=== PATIENT | female | born 1950 | race Caucasian/White ===

== ENCOUNTER → 2018-04-22 13:37 | Outpatient (CLI) | payer MEDICARE, OTHER, SELFPAY ==
--- NOTE | 2018-04-23 20:06 | DI.NM.S_ITS ---
DATE OF SERVICE: 04/22/2018 PROCEDURE: Exercise perfusion study. INDICATIONS: Shortness of breath, chest pain, atrial fibrillation, hypertension. RADIOPHARMACEUTICAL: 24.6 mCi technetium-99m Myoview IV was injected at stress and 23.4 mCi technetium-99m Myoview IV was injected at rest. CARDIAC STRESS: Patient underwent exercise perfusion study under the supervision of an attending staff. She walked on [place] protocol for 6 minutes 02 seconds achieved 108% of target heart rate and normal blood pressure response. Patient achieved 7 METs of workload. Functional aerobic impairment +5%. She didn't have any chest pain. Baseline EKG revealed sinus rhythm with RS-S complex in V1 To V2. Stress EKG did not reveal any obvious inducible ischemic changes. No significant arrhythmias. RAW DATA: There was breast shadow seen. GATED STUDY: Stress LV ejection fraction 77% and resting LV ejection fraction 71%. I don't see any obvious wall motion abnormalities. Resting end-diastolic volume is 103 mL. TID ratio is 0.77, which is within normal limits. Lung/heart ratio is 0.28, which is within normal limits. No transient ischemic dilatation. MYOCARDIAL PERFUSION SCAN: Stress supine, resting supine images and stress prone images were compared to each other. Stress supine images revealed small-sized mildly decreased perfusion of distal anterior wall, anterior apex, and resting supine images revealed small-sized mildly decreased perfusion of anterior wall and anterior apex which got completely resolved during prone images suggestive of breast tissue attenuation artifact. No obvious ischemia infarction on prone images. CONCLUSION: I will call this study a normal myocardial perfusion study with evidence of breast tissue attenuation artifact which got resolved during permanent images. As far as perfusion scan is concerned, this is a low-risk myocardial perfusion scan. Lucille Stern - ALISON/mirela/ab doc#: [id number]/job#: [id number] dd: 04/23/2018 16:42:00 dt: 04/23/2018 19:57:00 DICTATING /COPIES TO: Sanjeev Mathews MD COPIES MNE: CATE
== END ==
PROVIDERS: PCP Physician Assistant; Visit Provider Physician Assistant
DX: R06.02 Shortness of breath (principal); I48.91 Unspecified atrial fibrillation; R07.9 Chest pain, unspecified
CPT/HCPCS: 78452; 93016; 93017; 93018; A9502

== ENCOUNTER → 2018-04-28 10:28 | Outpatient (CLI) | payer MEDICARE, OTHER, SELFPAY ==
--- NOTE | 2018-04-28 | DI.ECHO.S_ITS ---
[facility]---------+ [facility] +---------+ : : [address] : [place] : : : : [id number] : : : : Phone: [phone]+ Echocardiogram Report + + :Name: RUPA ANGEL Study Date: 04/28/2018 Height: 69 in : :[facility] Weight: 154 lb : : Gender: Female BSA: 1.8 m2 : :: 1950 Age: 68 yrs BP: 134/64 mmHg: :Reason For Study: Congestive Heart Failure : : Performed By: Hillary Forbes : :Referring: JERAMY LOREDO : + + Interpretation Summary The left ventricle is normal in size. Assessment of diastolic parameters suggests a pseudonormalization pattern, consistent with elevated filling pressures. The ejection fraction is estimated to be 65-70%. The right ventricle is normal size. The right ventricular systolic function is normal. There is mild to moderate mitral regurgitation. There is mild to moderate tricuspid regurgitation. The right ventricular systolic pressure is estimated at 40 mmHg assuming a right atrial pressure of 3 mm Hg. Procedure: A two-dimensional transthoracic echocardiogram with color flow and Doppler was performed. The study quality was technically adequate. There is no prior echocardiogram noted for this patient. The patient was in normal sinus rhythm during the exam. Left Ventricle: The left ventricle is normal in size. There is normal left ventricular wall thickness. There is no thrombus. The ejection fraction is estimated to be 65-70%. There are no focal wall motion abnormalities. Assessment of diastolic parameters suggests a pseudonormalization pattern, consistent with elevated filling pressures. Right Ventricle: The right ventricle is normal size. The right ventricular systolic function is normal. Atria: The left atrium is moderately dilated. Right atrial size is normal. The interatrial septum is intact with no evidence for an atrial septal defect. Mitral Valve: The mitral valve is grossly normal. There is mild to moderate mitral regurgitation. Aortic Valve: The aortic valve opens well. The aortic valve is trileaflet. There is trace aortic regurgitation. Tricuspid Valve: The tricuspid valve leaflets are thin and pliable. There is mild to moderate tricuspid regurgitation. The right ventricular systolic pressure is estimated at 40 mmHg assuming a right atrial pressure of 3 mm Hg. Pulmonic Valve: The pulmonic valve is not well visualized. Great Vessels: The aortic root is normal size. The dimensions of the ascending aorta are normal. The IVC is of normal diameter and collapses greater than 50% with a sniff. This suggests a low right atrial pressure of 3 mm Hg. Pericardium/ Pleura There is no pericardial effusion. There is no pleural effusion. MMode/2D Measurements & Calculations LVIDd: 4.7 cm Ao root diam: 3.1 cm LVIDs: 2.6 cm Aortic Jxn: 2.5 cm FS: 43.5 % asc Aorta Diam: 3.2 cm EPSS: 1.2 cm Ao Arch Diam (Prox Trans): 2.4 cm IVSd: 0.89 cm LVPWd: 1.0 cm LV wheeler. diameter/BSA (cm/m^2): 2.5 LV sys. diameter/BSA (cm/m^2): 1.4 LA dimension: 3.6 cm RA long axis: 4.6 cm LA A2 area: 26.0 cm2 RA area: 15.9 cm2 LA A4 area: 20.5 cm2 RA vol: 47.1 ml LA length (vol): 5.2 cm RA : 25.5 ml/m2 LA vol: 87.4 ml IVC diam: 1.3 cm LA vol index: 47.3 ml/m2 RVDd major: 6.3 cm RVD1 (basal): 3.9 cm RVD2 (mid): 3.3 cm Doppler Measurements & Calculations Ao V2 max: 234.6 cm/sec MV E max rafi: 127.1 cm/sec Ao V2 mean: 141.2 cm/sec MV A max rafi: 71.7 cm/sec Ao max P.0 mmHg MV E/A: 1.8 Ao mean P.8 mmHg MV dec time: 0.25 sec Ao V2 VTI: 43.9 cm MV P1/2t: 73.8 msec MR ERO: 0.15 cm2 TR max rafi: 304.7 cm/sec MV P1/2t max rafi: 125.5 cm/sec TR max P.1 mmHg MVA(P1/2t): 3.0 cm2 PA V2 max: 131.0 cm/sec PA V2 mean: 97.2 cm/sec PA mean P.2 mmHg PA Accel Time: 0.08 sec MR flow rate: 94.5 cm3/sec MR PISA radius: 0.63 cm Reading Physician:RAFAEL
== END ==
PROVIDERS: PCP Physician Assistant; Visit Provider Physician Assistant
DX: I50.9 Heart failure, unspecified (principal)
CPT/HCPCS: 93306

== ENCOUNTER → 2018-04-30 07:15 | Outpatient (CLI) | payer MEDICARE, OTHER, SELFPAY ==
--- NOTE | 2018-04-30 | DI.US.S_ITS ---
PROCEDURE: US THYROID INDICATIONS: HYPOTHYROIDISM TECHNIQUE: Real-time scanning was performed of the thyroid gland, with image documentation. COMPARISON: None. FINDINGS: Right: 0.5 x 0.8 x 2.0 cm. Echotexture is heterogeneous, no measurable nodules. Left: 0.7 x 0.9 x 3.1 cm. Echotexture is heterogeneous, no measurable cystic or solid nodules. There is a 2 x 3 mm calcification in the lower pole. Isthmus: 1.9 mm IMPRESSION: Atrophic thyroid with diffusely heterogeneous echotexture, no normal appearing thyroid tissue. No visible thyroid nodules. Small calcification lower pole left lobe. Dictated by: Zeb Hatfield M.D. on 04/30/2018 at 8:52 Approved by: Zeb Hatfield M.D. on 04/30/2018 at 8:55
== END ==
PROVIDERS: PCP Physician Assistant; Visit Provider Physician Assistant
DX: E03.9 Hypothyroidism, unspecified (principal)
CPT/HCPCS: 76536